=== PATIENT | female | born 1975 | race Caucasian/White ===

== ENCOUNTER 2017-09-14 09:49 | Outpatient (CLI) ==
--- NOTE | 2017-09-14 12:30 | DI ---
EXAM: CHEST FRONTAL AND LATERAL VIEWS HISTORY: Fever and cough. COMPARISON: 08/24/2014 FINDINGS: Heart size and mediastinal contour remain within normal limits. No acute infiltrates. Normal vascularity with no pleural fluid or pneumothorax. The bony thorax has no acute finding. IMPRESSION: No acute process.
== END 2017-09-14 09:50 | disposition home or self-care (01) ==
LOC: RAD 09:49
PROVIDERS: ATTEND Family Medicine
DX: R50.9 Fever, unspecified (principal); R05 Cough
CPT/HCPCS: 87502

== ENCOUNTER 2018-01-18 20:30 | Emergency (ER) ==
[2018-01-18] MEDS ORDERED: SODIUM CHLORIDE 1,000 ML IV STA (20:33)
[2018-01-18 20:38] VITALS: TEMP 97.9; BMI 21.7
[2018-01-18] MEDS ORDERED: ASPIRIN CHEWABLE PO STA (20:38)
[2018-01-18] MEDS ORDERED: ZOFRAN 4 MG/2 ML IVP STA (20:39)
[2018-01-18] MEDS ORDERED: PROTONIX IV IVP STA (20:39)
[2018-01-18] MEDS ORDERED: MORPHINE 2 MG/ML SYRINGE IVP PRN (20:41)
--- NOTE | 2018-01-18 20:44 | ED.PDOC ---
General ED Provider: Dr. MANUEL ANN-ER Chief Complaint: Chest Wall Injury/Pain Stated Complaint: my chest hurts into my back Time Seen by Physician: 20:35 Mode of Arrival: Wheelchair Information Source: Patient, Other Exam Limitations: No limitations Primary Care Provider: MANUEL ANN Nursing and Triage Documentation Reviewed and Agree: Yes Does patient meet sepsis criteria?: No If yes, has appropriate treatment been initiated?: No System Inflammatory Response Syndrome: Not Applicable Sepsis Protocol: For patient's 13 years and over: Temp is 96.8 and below OR 101 and greater Pulse >90 BPM Resp >20/minute Acutely Altered Mental Status Are patient's symptoms suggestive of a new infection, such as: -Pneumonia -Skin, Soft Tissue -Endocarditis -UTI -Bone, Joint Infection -Implantable Device -Acute Abdominal Infection -Wound Infection -Meningitis -Blood Stream Catheter Infection -Unknown Cardiovascular Complaint Exam - Chest Pain Complaint/Exam Onset: Gradual Duration: one hour Symptoms Are: Still present Timing: Constant Initial Severity: Mild Current Severity: Mild Location: Reports: Diffuse Pain Radiates: Reports: Back Character: Reports: Dull, Aching Aggravating: Reports: None Alleviating: Reports: None Associated Signs and Symptoms: Reports: Nausea, Vomiting Related Surgical History: Reports: None History of Healthcare-Acquired Pneumonia: Reports: No Prior Care for this Complaint: No Recent Stress Test: No Recent Echo/LV Function: No JVD Present: No Subcutaneous Emphysema Present: No Diminshed Breath Sounds: No Reproducible Chest Wall Pain: No Bilateral Pulses Present: Yes Review of Systems - Review Of Systems Constitutional: Reports: No symptoms Eyes: Reports: No symptoms Ears, Nose, Mouth, Throat: Reports: No symptoms Respiratory: Reports: No symptoms Cardiac: Reports: Chest pain GI: Reports: No symptoms : Reports: No symptoms Musculoskeletal: Reports: No symptoms Skin: Reports: No symptoms Neurological: Reports: No symptoms Endocrine: Reports: No symptoms Hematologic/Lymphatic: Reports: No symptoms All Other Systems: Reviewed and Negative Past Medical History - Past Medical History Previously Healthy: No Endocrine: Reports: Unknown Cardiovascular: Reports: Unknown Respiratory: Reports: Unknown Hematological: Reports: Unknown Gastrointestinal: Reports: Unknown Genitourinary: Reports: Unknown Neuro/Psych: Reports: Unknown Musculoskeletal: Reports: Unknown Cancer: Reports: Unknown Last Menstrual Period: hysterectomy - Surgical History General Surgical History: Reports: Unknown - Family History Family History: Reports: Unknown - Social History Smoking Status: Current every day smoker, Heavy tobacco smoker Hx Substance Use: No Alcohol Screening: None - Immunizations Tetanus Shot up to Date: Yes Physical Exam - Physical Exam Appearance: Well-appearing, No pain distress, Well-nourished Pain Distress: Mild Eyes: ESTHER, EOMI, Conjunctiva clear ENT: Ears normal, Nose normal, Oropharynx normal Neck: Supple Respiratory: Airway patent Cardiovascular: RRR, Pulses normal, No rub, No murmur GI/: Soft, Nontender, No masses, Bowel sounds normal, No Organomegaly Musculoskeletal: Normal strength, ROM intact, No edema, No calf tenderness Skin: Warm, Dry, Normal color Neurological: Sensation intact, Motor intact, Reflexes intact, Cranial nerves intact, Alert, Oriented Psychiatric: Affect appropriate, Mood appropriate, Anxious Physician Notification - Case Discussed Physician Notified: dr mike Time of Notification: 20:48 Critical Care Note - Critical Care Note Total Time (mins): 30 Course - Course Hematology/Chemistry: 01/18/18 20:34 01/18/18 20:34 Orders, Labs, Meds: Lab Review 01/18/18 01/18/18 01/18/18 20:34 20:34 20:34 WBC 15.95 H RBC 5.20 Hgb 15.2 Hct 44.5 MCV 85.6 MCH 29.2 MCHC 34.2 RDW Coeff of Freda 12.9 Plt Count 263 Immature Gran % (Auto) 0.3 Neut % (Auto) 73.6 Lymph % (Auto) 20.4 [place] % (Auto) 4.3 Eos % (Auto) 1.1 Baso % (Auto) 0.3 Immature Gran # (Auto) 0.1 Neut # (Auto) 11.7 H Lymph # (Auto) 3.3 [place] # (Auto) 0.7 Eos # (Auto) 0.2 Baso # (Auto) 0.1 D-Dimer (Manual) 277.64 Sodium 138 Potassium 3.8 Chloride 102 Carbon Dioxide 25 Anion Gap 14.8 BUN 18 Creatinine 1.03 Estimated GFR (MDRD) 58.00 BUN/Creatinine Ratio 17.47 Glucose 102 Calcium 9.2 Total Bilirubin 0.6 AST 60 H ALT 28 Alkaline Phosphatase 79 Total Creatine Kinase 65 Troponin I < 0.0100 Total Protein 7.2 Albumin 3.8 Globulin 3.4 Albumin/Globulin Ratio 1.12 Amylase 62 Lipase 21 Orders Category Date Time Status EKG-(ED ONLY) Stat CARDIO 01/18/18 20:32 Completed TRANSFER TO OUTSIDE FACILITY .TO [facility] 01/18/18 20:49 Active (MARY FLORES) WRITE TRANSFER/SBAR NOTE ONCE CARE 01/18/18 20:49 Active DISCHARGE ASSESSMENT ONCE DISCHARGE 01/18/18 20:49 Active WRITE DISCHARGE NOTE ONCE DISCHARGE 01/18/18 20:49 Active ED [employer] APPLIED .ONCE EMERGENCY 01/18/18 20:32 Active ED IV/MEDIPORT/POWERPORT .ONCE EMERGENCY 01/18/18 20:33 Active AMYLASE Stat LAB 01/18/18 20:34 Completed CBC W/ AUTO DIFF Stat LAB 01/18/18 20:34 Completed COMPREHENSIVE METABOLIC PANEL Stat LAB 01/18/18 20:34 Completed CREATINE KINASE Stat LAB 01/18/18 20:34 Completed D-DIMER Stat LAB 01/18/18 20:34 Completed LIPASE Stat LAB 01/18/18 20:34 Completed TROPONIN I Stat LAB 01/18/18 20:34 Completed 0.9 % Sodium Chloride [Saline Flush] MEDS 01/18/18 20:33 Discontinued 1 syr IVF PRN PRN Aspirin [Aspirin Chewable] MEDS 01/18/18 20:38 Discontinued 324 mg PO ONCE STA Morphine Sulfate [Morphine 2 mg/ml Syringe] MEDS 01/18/18 20:51 Discontinued 2 mg .ROUTE .STK-MED ONE Morphine Sulfate [Morphine 2 mg/ml Syringe] MEDS 01/18/18 20:41 Discontinued 2 mg IVP Q4H PRN Ondansetron HCl/Pf [Zofran 4 mg/2 ml] MEDS 01/18/18 20:39 Discontinued 4 mg IVP ONCE STA Pantoprazole Sodium [Protonix IV] MEDS 01/18/18 20:39 Discontinued 40 mg IVP ONCE STA Sodium Chloride 0.9% [Sodium Chloride] 1,000 ml MEDS 01/18/18 20:33 Discontinued IV BOLUS CXR [CHEST, 1V AP ONLY] Stat RADS 01/18/18 20:38 Completed Medications Discontinued Medications Generic Name Dose Route Start Last Admin Trade Name Freq PRN Reason Stop Dose Admin Aspirin 324 mg 01/18/18 20:38 01/18/18 20:50 Aspirin Chewable PO 01/18/18 20:39 324 mg ONCE STA Administration Sodium Chloride 1,000 mls @ 1,000 mls/hr 01/18/18 20:33 01/18/18 20:51 Sodium Chloride IV 01/18/18 21:32 1,000 mls/hr BOLUS STA Administration Morphine Sulfate 2 mg 01/18/18 20:41 01/18/18 20:51 Morphine 2 Mg/Ml Syringe IVP 2 mg Q4H PRN Administration Chest Pain Ondansetron HCl 4 mg 01/18/18 20:39 01/18/18 20:51 Zofran 4 Mg/2 Ml IVP 01/18/18 20:40 4 mg ONCE STA Administration Pantoprazole Sodium 40 mg 01/18/18 20:39 01/18/18 20:51 Protonix Iv IVP 01/18/18 20:40 40 mg ONCE STA Administration Sodium Chloride 1 syr 01/18/18 20:33 01/18/18 20:51 Saline Flush IVF 1 syr PRN PRN Administration To flush IV Vital Signs: Temp Pulse Resp BP Pulse Ox 01/18/18 20:51 61 22 116/64 100 01/18/18 20:31 97.9 F 83 18 127/75 98 KATHARINE Risk Score KATHARINE Risk Score: Risk Score Odds of by 30D 0 0.1 (0.1-0.2) 1 0.3 (0.2-0.3) 2 0.4 (0.3-0.5) 3 0.7 (0.6-0.9) 4 1.2 (1.0-1.5) 5 2.2 (1.9-2.6) 6 3.0 (2.5-3.6) 7 4.8 (3.8-6.1) Departure - Departure Time of Disposition: 20:48 Disposition: TSF SHORT-TRM HOSP Discharge Problem: Chest pain Qualifiers: Chest pain type: other chest pain Qualified Code(s): R07.89 - Other chest pain Instructions: Chest Pain (ED) Condition: Good Pt referred to PMD for follow-up: Yes IPMP verified?: No Allergies/Adverse Reactions: Allergies No Known Allergies Allergy (Unverified 01/18/18 20:50) Transfer Form Completed: Yes Disposition Discussed With: Patient, Family
[2018-01-18 20:51] VITALS: BP 116/64
[2018-01-18] MEDS ORDERED: MORPHINE 2 MG/ML SYRINGE ONE (20:51)
--- NOTE | 2018-01-18 21:03 | DI ---
EXAM: Single view of the chest. History: Chest pain. Comparison: Chest radiograph 09/14/2017 Findings: Heart size is normal. No focal consolidation. No appreciable pleural fluid and no pneumo thorax. No acute osseous abnormalities. Impression: No acute cardiopulmonary process
== END 2018-01-18 21:00 | disposition short-term general hospital (02) ==
LOC: ED 20:30
DX: R07.89 Other chest pain (principal); M54.9 Dorsalgia, unspecified; R11.2 Nausea with vomiting, unspecified; F17.210 Nicotine dependence, cigarettes, uncomplicated; M25.512 Pain in left shoulder
CPT/HCPCS: 36415; 80053; 82150; 82550; 83690; 84484; 85025; 85379; 93005; 93010; 96361; 96365; 96374; 96375; 99285